=== PATIENT | male | born 2000 | race Asian ===

== ENCOUNTER 2024-08-09 07:59 | Emergency (ER) | payer OTHER ==
[~2024-08-09] VITALS: Ht 172.7 cm; Wt 90.0 kg
[2024-08-09 08:50] LABS: BASO # 0.1 10^3/uL (0.0-0.2); BASO % 0.4 % (0.0-1.0); EOS # 0.1 10^3/uL (0.0-0.5); EOS % 0.8 % (0.0-3.0); HEMATOCRIT 44.4 % (42.0-52.0); HEMOGLOBIN 15.7 g/dl (13.5-17.5); LYMPH # 3.2 10^3/uL (1.5-5.0); LYMPH % 25.6 % (24.0-44.0); MEAN CORPUSCULAR HEMOGLOBIN 27.5 pg (27.0-33.0); MEAN CORPUSCULAR HGB CONC 35.4 g/dl (32.0-36.5); MEAN CORPUSCULAR VOLUME 77.9 fl (80.0-96.0); MONO # 0.6 10^3/uL (0.0-0.8); MONO % 5.1 % (2.0-8.0); NEUTROPHILS # 8.4 10^3/uL (1.5-8.5); NEUTROPHILS % 67.8 % (36.0-66.0); PLATELET COUNT, AUTOMATED 291 10^3/uL (150-450); WHITE BLOOD COUNT 12.4 10^3/uL (4.0-10.0)
[2024-08-09] MEDS ORDERED: ISOVUE-370 76% 100ML VIAL As Ordered ONE (08:53)
[2024-08-09 09:00] LABS: CK-MB VALUE MASS < 1.0 NG/ML (<3.6); MAGNESIUM LEVEL 1.6 MG/DL (1.8-2.4)
[2024-08-09 09:04] LABS: CPK CREATINE PHOSPHOKINASE 133 U/L (46-171); MB/CK RELATIVE INDEX 0.75 (< OR =4)
[2024-08-09 09:06] VITALS: TEMP 98.2
[2024-08-09 09:30] LABS: RSV AMPLIFICATION POSITIVE (NEGATIVE)
[2024-08-09] MEDS: MAG SULF 1GM/100ML (MAG RUN) 1 GM in IV 1 EA IV ONE (10:38)
[2024-08-09 11:14] LABS: CK-MB VALUE MASS < 1.0 NG/ML (<3.6)
[2024-08-09 11:15] LABS: CPK CREATINE PHOSPHOKINASE 118 U/L (46-171); MB/CK RELATIVE INDEX 0.84 (< OR =4)
[2024-08-09 12:30] LABS: CK-MB VALUE MASS < 1.0 NG/ML (<3.6)
[2024-08-09 12:31] LABS: CPK CREATINE PHOSPHOKINASE 111 U/L (46-171)
[2024-08-09] MEDS ORDERED: AMOX875T2 PO (13:40)
[2024-08-09 13:44] VITALS: O2SAT 98
[2024-08-09 13:45] VITALS: BP 106/56
== END 2024-08-09 13:56 | disposition home or self-care (01) ==
LOC: EDBD 07:59 → M ED 07:59
DX: R55 Syncope and collapse (principal); E83.42 Hypomagnesemia; J01.90 Acute sinusitis, unspecified; F10.10 Alcohol abuse, uncomplicated; R94.31 Abnormal electrocardiogram [ECG] [EKG]; Z79.2 Long term (current) use of antibiotics
CPT/HCPCS: 70450; 71275; 80047; 82550; 82553; 83735; 84484; 85025; 87631; 93005; 93041; 96365; 99285; J3475; Q9967